=== PATIENT | female | born 1960 ===

== ENCOUNTER → 2022-05-15 13:50 | Outpatient (BNVA) | payer BC, SELFPAY | PROVIDERS: PCP Internal Medicine; Visit Provider Student in an Organized Health Care Education/Training Program | DX: M17.0 Bilateral primary osteoarthritis of knee (principal); M19.041 Primary osteoarthritis, right hand; M19.042 Primary osteoarthritis, left hand | CPT/HCPCS: 20610 ==

== ENCOUNTER 2022-05-22 16:12 | Outpatient (REF) | payer BC, SELFPAY | END 2022-05-22 16:13 | disposition home or self-care (01) | LOC: HO.HOSX 16:12 | PROVIDERS: Visit Provider Orthopaedic Surgery | DX: Z13.89 Encounter for screening for other disorder (principal) ==

== ENCOUNTER → 2022-07-12 09:00 | Outpatient (BNVA) | payer BC, SELFPAY | PROVIDERS: Visit Provider Student in an Organized Health Care Education/Training Program | DX: Z13.89 Encounter for screening for other disorder (principal) ==

== ENCOUNTER → 2022-10-01 11:48 | Outpatient (BNVA) | payer BC, SELFPAY | PROVIDERS: PCP Internal Medicine; Visit Provider Student in an Organized Health Care Education/Training Program | DX: Z13.89 Encounter for screening for other disorder (principal) ==

== ENCOUNTER 2022-11-06 14:43 | Outpatient (REF) | payer BC, SELFPAY ==
--- NOTE | ~2022-11-06 | MR_ITS ---
EXAMINATION: MR KNEE WITHOUT CONTRAST, RIGHT CLINICAL INFORMATION: Right knee pain. Evaluate for internal derangement. COMPARISON: None available. TECHNIQUE: MRI of the knee without contrast was performed using routine sequences on a high-field scanner. FINDINGS: MENISCI: Medial Meniscus: Complete radial tear through the anterior aspect of the meniscal body measuring up to 0.7 cm in AP dimension. Nondisplaced, oblique inner margin tearing of the posterior body and posterior horn. Mild adjacent soft tissue edema. Lateral Meniscus: Intact. LIGAMENTS: Cruciate: Intact. Collateral: Minimal edema adjacent to the medial collateral ligament which could represent a grade 1 sprain or be related to a meniscal tear. Intact fibular collateral ligament. EXTENSOR MECHANISM: Intact. ARTICULAR CARTILAGE/BONE: Patellofemoral Compartment: Articular cartilage fissuring with adjacent signal heterogeneity at the lateral aspect of the patellar median ridge. Central trochlear signal heterogeneity. Tiny marginal osteophytes. Medial Compartment: Weightbearing articular cartilage thinning and signal heterogeneity with small marginal osteophytes. Lateral Compartment: Posterior lateral tibial plateau articular cartilage signal heterogeneity. JOINT FLUID AND BURSAE: Small to moderate joint effusion. MR/MR knee RT wo con IMPRESSION: 1. Complete radial tear through the anterior aspect of the medial meniscal body measuring 0.7 cm in AP dimension. Nondisplaced, oblique inner margin tearing of the posterior body and posterior horn. 2. Mild adjacent soft tissue edema. 3. Minimal edema adjacent to the medial collateral ligament which could represent a grade 1 sprain or be related to a meniscal tear. Mild tricompartmental osteoarthritis. Small to moderate joint effusion.
== END 2022-11-06 14:44 | disposition home or self-care (01) ==
LOC: HO.MRI 14:43
PROVIDERS: PCP Internal Medicine; Visit Provider Student in an Organized Health Care Education/Training Program
DX: M25.461 Effusion, right knee (principal)
CPT/HCPCS: 73721

== ENCOUNTER 2023-01-01 09:21 | Outpatient (AMB) | payer BC, SELFPAY ==
--- NOTE | 2023-01-01 09:29 | MHC.OFFVIS ---
Intake Vital Signs 01/01/23 09:30 Height 5 ft 4 in Weight 188 lb BMI 32.3 Intake Visit Reasons: New Prob- right knee pain/ OA Intake Note: Christina a 62 year old female who presents today for an evaluation of right knee. Patient reports being seen by circuit manager and was given an injection on 05/15/22 to her right knee. States her pain begin approx in Jan and was having difficulty with stairs. States she feels unsteady and has some weakness. Pain has improved a little but cont's to have swelling. No injury she can recall. States injection lasted about 2 months. Patient denied numbness, tingling or bracing. Allergies No Known Allergies Allergy (Verified 01/01/23 09:38) HPI New Prob- right knee pain/ OA HPI Details 62-year-old female who presents to the office today for evaluation of right knee pain. She states she has pain in her right knee since January 2022, she denies injury. She was seen by her circuit manager where she was given a right knee injection on 05/15/22 which lasted for about 2 months. She reports she has weakness, pain and swelling in her knee which is aggravated with stair use. She also c/o feeling like her knee is unsteady. She denies any numbness, tingling. [facility] Medical History Adenomyosis Cervical (neck) region somatic dysfunction Hypertension Osteoarthritis Ulcerative colitis Surgical History Hx of tonsillectomy Family History Mother Diabetes Social History Household Members: Spouse Housing: House Alcohol intake: current Alcohol intake frequency: holidays/special occasions only Alcohol type: hard liquor Patient Tobacco Use Status: Never used Tobacco e-Cigarette/Vaping Use: Never Used service: No Current occupational status: employed Current occupation: field crop farmworker Review of Systems Const All systems reviewed & are unremarkable except as noted in HPI and below Physical Exam Vital Signs: BMI result Body Mass Index 32.3 Extrem Other: Right knee: Skin intact, no erythema or joint effusion. Medial joint line tenderness. Full ROM with crepitus. Negative Eric?s. No ligamentous laxity. NVI. Results Reviewed Results Reviewed: Xrays were obtained in the office today and personally reviewed by me of the right knee which show mild medial and PF compartment OA MR knee RT wo con 11/06/22 IMPRESSION: 1. Complete radial tear through the anterior aspect of the medial meniscal body measuring 0.7 cm in AP dimension. Nondisplaced, oblique inner margin tearing of the posterior body and posterior horn. 2. Mild adjacent soft tissue edema. 3. Minimal edema adjacent to the medial collateral ligament which could represent a grade 1 sprain or be related to a meniscal tear. Mild tricompartmental osteoarthritis. Small to moderate joint effusion. ? Assessment & Plan Assessment & Plan (1) Tear of medial meniscus of right knee: Code(s): S83.241A - Other tear of medial meniscus, current injury, right knee, initial encounter Plan We discussed options today which include repeat injection vs surgical intervention. Since she continues to have limitations with daily activities she would like to pursue surgical intervention. I discussed the extent of the injury to the patient and options available which include surgical intervention. I explained the procedure in detail along with the length of recovery and rehab course. I explained the risk, benefits and alternatives. Risk including, but not limited to infection, blood clots, bleeding, ongoing pain and stiffness. I answered all their questions and with their understanding they have consented to move forward with right knee arthroscopy with Dr. Alonso. The patient will be booked accordingly and meet with him pre-operatively. . Orders: Orders XR knee RT 2V Today M25.569 - Pain in unspecified knee XR knee standing BI Today M25.561 - Pain in right knee, M25.562 - Pain in left knee Patient Instructions: Scribed for Reta Kay PA-C, by Anil Duggan biomedical equipment specialist, on 01/01/2023 at 9:30 AM BARBARA. Reta Valencia PA-C, have personally reviewed and agree with the information entered by the scribe. Coding Level of Care Code New Pt Level 4 (33216) Diagnoses Tear of medial meniscus of right knee S83.241A
[2023-01-01 09:30] VITALS: BMI 32.3
== END 2023-01-01 10:08 | disposition home or self-care (01) ==
PROVIDERS: PCP Internal Medicine; Visit Provider Physician Assistant
DX: S83.241A Other tear of medial meniscus, current injury, right knee, initial encounter (principal)
CPT/HCPCS: 99214

== ENCOUNTER 2023-01-01 11:25 | Outpatient (REF) | payer BC, SELFPAY ==
--- NOTE | ~2023-01-01 | XR_ITS ---
EXAMINATION: XR KNEE AP STANDING CLINICAL INFORMATION: Pain in right knee. COMPARISON: MR right knee 11/06/2022. TECHNIQUE: AP bilateral standing view of the knees was obtained. Lateral and sunrise views of the right knee were also obtained. FINDINGS: Moderate degenerative changes in the medial compartment left knee with joint space narrowing and hypertrophic change. RIGHT KNEE: Trace joint effusion. Tiny tricompartmental osteophytes. Gzrn-zh-caezgnzj medial joint space narrowing. XR/XR knee standing BI IMPRESSION: 1. Vvaz-xj-hgqnecjy degenerative changes right knee. 2. Moderate degenerative changes left knee medial compartment on single AP view.
--- NOTE | ~2023-01-01 | XR_ITS ---
EXAMINATION: XR KNEE, RIGHT XR KNEE AP STANDING CLINICAL INFORMATION: Pain in right knee. COMPARISON: MR right knee 11/06/2022. TECHNIQUE: AP bilateral standing view of the knees was obtained. Lateral and sunrise views of the right knee were also obtained. FINDINGS: Moderate degenerative changes in the medial compartment left knee with joint space narrowing and hypertrophic change. RIGHT KNEE: Trace joint effusion. Tiny tricompartmental osteophytes. Agji-te-jqzpguuq medial joint space narrowing. XR/XR knee RT 2V IMPRESSION: 1. Wvsn-su-ydsxxznk degenerative changes right knee. 2. Moderate degenerative changes left knee medial compartment on single AP view.
== END 2023-01-01 11:26 | disposition home or self-care (01) ==
LOC: HO.HOSX 11:25
PROVIDERS: Visit Provider Physician Assistant
DX: S83.241A Other tear of medial meniscus, current injury, right knee, initial encounter (principal); M25.562 Pain in left knee
CPT/HCPCS: 73560; 73565

== ENCOUNTER 2023-02-04 08:08 | Outpatient (AMB) | payer BC, SELFPAY ==
--- NOTE | 2023-02-04 08:10 | MHC.OFFVIS ---
Intake Vital Signs 02/04/23 08:16 Height 5 ft 4 in Weight 188 lb BMI 32.3 Intake Visit Reasons: Pre-Op RT MMS 02/14/23DR Intake Note: Christina is a 62 year old female who presents with complaints of progressively worsening right knee pain and giving way. She states that she injured her right knee several years ago. She twisted her knee and had acute onset of pain. Since that time her symptoms have worsened spite of non operative treatments. She has done physical therapy exercises which aggravated her pain. She has also tried Tylenol and anti-inflammatory medicines which gave her minimal relief. She has had cortisone injections in the past which gave her only temporary relief. She states that her right knee will give out several times per day. Allergies No Known Allergies Allergy (Verified 02/04/23 08:15) Medication List - Last Reconciled 02/04/23 by Nomi Rivera MD oxycodone-acetaminophen 5-325 mg (Percocet) 1 tab PO Q6H PRN sulfasalazine 1 g PO BID PFSH Medical History Adenomyosis Cervical (neck) region somatic dysfunction Hypertension Osteoarthritis Ulcerative colitis Surgical History Hx of tonsillectomy Family History Mother Diabetes Social History Household Members: Spouse Housing: House Alcohol intake: current Alcohol intake frequency: holidays/special occasions only Alcohol type: hard liquor Patient Tobacco Use Status: Never used Tobacco e-Cigarette/Vaping Use: Never Used service: No Current occupational status: employed Current occupation: fabric and textile factory worker Physical Exam Vital Signs: BMI result Body Mass Index 32.3 Const Other: Well-nourished well-developed very friendly female awake alert and oriented x3 in no acute distress Extrem Other: Bilateral lower extremity examination shows good capillary refill, no skin lesions noted, normal sensation light touch Right knee examination shows a minimal effusion, minimal crepitus with range of motion, tenderness along her medial and lateral joint lines, positive Rae's test, no instability Results Reviewed Results Reviewed: X-rays of the patient's right knee show mild diffuse joint space narrowing, no acute bony abnormalities MRI of the patient's right knee shows mild diffuse degenerative changes, a tear of her medial meniscus as well as possible tearing of her lateral meniscus, no acute bony abnormalities Assessment & Plan Assessment & Plan (1) Tear of medial meniscus of right knee: Code(s): S83.241A - Other tear of medial meniscus, current injury, right knee, initial encounter Plan Ms. Mathew presents with progressively worsening right knee pain and mechanical symptoms due to tearing of her medial meniscus. I had a lengthy discussion with the patient regarding the treatment options. At this point she has failed continued non operative treatments. The risks and benefits of right knee arthroscopic surgery were discussed at length with the patient. Patient wishes to proceed with surgery. Surgery will most likely involve right knee diagnostic arthroscopy with partial medial and lateral meniscectomies. The patient was given a prescription for Percocet at her preoperative appointment. I will see her back 2-3 weeks following her surgery for 1st postoperative appointment. The patient will follow-up as instructed. Feel free to call me at any time should questions regarding her orthopedic management arise. Thank you very much for asking me to see this very friendly patient. I spent 22 minutes in reviewing the patient's records and imaging studies, seeing the patient and documenting in the medical record. Medications: New oxycodone-acetaminophen 5-325 mg (Percocet) Partial Fill upon patient request. 1 tab PO Q6H PRN 20 tabs 0RF pain Coding Level of Care Code Est Pt Level 2 (04937) Diagnoses Tear of medial meniscus of right knee S83.241A
[2023-02-04 08:16] VITALS: BMI 32.3
== END 2023-02-04 08:35 | disposition home or self-care (01) ==
PROVIDERS: PCP Internal Medicine; Visit Provider Orthopaedic Surgery
DX: S83.241A Other tear of medial meniscus, current injury, right knee, initial encounter (principal)
CPT/HCPCS: 99212

== ENCOUNTER → 2023-02-04 08:08 | Outpatient (BNVA) | payer BC, SELFPAY | PROVIDERS: PCP Internal Medicine; Visit Provider Orthopaedic Surgery ==

== ENCOUNTER 2023-02-19 09:15 | Outpatient (AMB) | payer BC, SELFPAY ==
[2023-02-19 09:22] VITALS: BP 160/74; PULSE 94; TEMP 36.4; O2SAT 96; BMI 30.8
--- NOTE | 2023-02-19 09:22 | MHC.OFFVIS ---
Intake Vital Signs 02/19/23 09:22 Height 5 ft 4 in Weight 179 lb 7.3 oz BMI 30.8 BP 160/74 H Blood Pressure Location Rt brachial Position Sitting Pulse 94 Pulse Source Pulse Oximeter Temp 97.6 F Temp Source Skin Pulse Oximetry (%) 96 Intake Visit Reasons: Knee OA Intake Note: Pt seen today for OA follow up. Reports knee surgery scheduled 02/28/23 Commercial Credit Portfolio Manager Required: No Accompanied by: Self / Same As Patient Allergies No Known Allergies Allergy (Verified 02/19/23 09:23) Medication List - Last Reconciled 02/19/23 by Noris Sullivan MD oxycodone-acetaminophen 5-325 mg (Percocet) 1 tab PO Q6H PRN sulfasalazine 1 g PO BID HPI HPI Comments History of Present Illness Details 62-year-old female with ulcerative colitis on sulfasalazine, bilateral hand osteoarthritis and bilateral knee osteoarthritis returns for follow-up. She was evaluated by Orthopedics for right knee meniscal tear and she is scheduled for arthroscopic procedure this week. Continues to have pain and stiffness in her hands. Some weakness with gripping objects with the right hand. Difficulty making a fist due to right thumb pain and weakness. She does not have any new or worsening pain. Initial history: This is 61-year-old female with a past medical history of ulcerative colitis on sulfasalazine, adenomyosis, hypertension of presents for evaluation of bilateral hand deformities. Patient started having bilateral hand pain and deformities about 5 years ago. She was started on meloxicam by her sign language translator which did not provide any relief. 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 She has reduced chip silo tender strength bilaterally due to pain and stiffness. She also has cracking neck sounds when moving her neck left and right. She has neck pain radiating to her shoulders with movement. She also has bilateral knee pain, it started in the left knee a few years ago when her she had the work injury, left knee MRI showed meniscal tear, she received a couple of intra-articular steroid injections, the 1st of which provided many months of the relief however the 2nd injection did not provide any relief. Currently, her right knee is the 1 that hurts, worse with walking. She used Voltaren gel for her right knee but at that time she had pelvic pain similar to the pain she had when she was diagnosed with I did a myosis so she stopped using it. She states that her ulcerative colitis has been relatively well controlled, she has not had a flare in years. She is due for another colonoscopy early next year [facility] Medical History Adenomyosis Cervical (neck) region somatic dysfunction Hypertension Osteoarthritis Ulcerative colitis Surgical History Hx of tonsillectomy Family History Mother Diabetes Social History Household Members: Spouse Housing: House Alcohol intake: current Alcohol intake frequency: holidays/special occasions only Alcohol type: hard liquor Patient Tobacco Use Status: Never used Tobacco e-Cigarette/Vaping Use: Never Used service: No Current occupational status: employed Current occupation: production line worker Review of Systems Const All systems reviewed & are unremarkable except as noted in HPI and below Musc Reports arthralgias and Reports stiffness Physical Exam Vital Signs: Last Vital Signs Temp 97.6 F 02/19/23 09:22 Pulse 94 02/19/23 09:22 BP 160/74 H 02/19/23 09:22 Pulse Ox 96 02/19/23 09:22 BMI result Body Mass Index 30.8 Const General: cooperative, healthy appearing, comfortable and no acute distress Nutritional Appearance: average body habitus Orientation/consciousness: patient oriented x3 Limitations: no limitations HEENT Head: Yes normocephalic and Yes atraumatic Mouth: moist mucous membranes Resp Effort & Inspection: normal respiratory effort and able to speak in complete sentences Neuro General: patient oriented x3 Extrem Other: Significant osteoarthritic changes of her hands with prominent Ray's and Heberden's nodes No tenderness at the 1st CMC joint bilaterally Grind test does not produce pain bilaterally No right knee swelling or warmth today. Assessment & Plan Assessment & Plan (1) Osteoarthritis of hands, bilateral: Code(s): M19.041 - Primary osteoarthritis, right hand; M19.042 - Primary osteoarthritis, left hand Qualifiers: Osteoarthritis type: primary Qualified Code(s): M19.041 - Primary osteoarthritis, right hand; M19.042 - Primary osteoarthritis, left hand Plan: This is a 62-year-old female with a past medical history of ulcerative colitis on sulfasalazine and bilateral hand erosive osteoarthritis follow-up. Feeling about the same overall For her bilateral hand osteoarthritis. Patient did occupational therapy which was somewhat helpful. She was evaluated by a hand surgeon and discussed different surgeon that he has and patient was not interested. Prednisone taper was not helpful. Voltaren gel was associated with GI bleeding. Patient states that her pain is about the same and tolerable currently. Follow-up in 1 year (2) Tear of medial meniscus of right knee: Code(s): S83.241A - Other tear of medial meniscus, current injury, right knee, initial encounter Qualifiers: Tear current or old: current Encounter type: subsequent encounter Meniscus tear of knee type: unspecified type Qualified Code(s): S83.241D - Other tear of medial meniscus, current injury, right knee, subsequent encounter Plan: Evaluated by Orthopedics and scheduled for arthroscopic procedure Plan I spent 14 minutes reviewing patient's chart, evaluating patient, counseling patient and documenting in the chart Coding Level of Care Code Est Pt Level 3 (78250) Diagnoses Osteoarthritis of hands, bilateral M19.041; M19.042 Osteoarthritis type: primary Tear of medial meniscus of right knee S83.241D Tear current or old: current Encounter type: subsequent encounter Meniscus tear of knee type: unspecified type
== END 2023-02-19 09:38 | disposition home or self-care (01) ==
PROVIDERS: PCP Internal Medicine; Visit Provider Student in an Organized Health Care Education/Training Program
DX: M19.041 Primary osteoarthritis, right hand (principal); M19.042 Primary osteoarthritis, left hand; S83.241D Other tear of medial meniscus, current injury, right knee, subsequent encounter
CPT/HCPCS: 99213

== ENCOUNTER → 2023-02-19 09:15 | Outpatient (BNVA) | payer BC, SELFPAY | PROVIDERS: PCP Internal Medicine; Visit Provider Student in an Organized Health Care Education/Training Program ==

== ENCOUNTER → 2023-11-11 15:46 | Outpatient (RCR) | payer BC, SELFPAY | END | disposition home or self-care (01) | LOC: HO.OT 05-29 10:31 | PROVIDERS: PCP Internal Medicine; Visit Provider Podiatrist | DX: M19.041 Primary osteoarthritis, right hand (principal); M19.042 Primary osteoarthritis, left hand | CPT/HCPCS: 29130; 97035; 97110; 97140; 97166; 97535; 97760 ==

== ENCOUNTER 2024-04-07 07:36 | Outpatient (AMB) | payer BC, SELFPAY ==
--- NOTE | 2024-04-07 07:43 | A.OFFVIS_ITS ---
Vital Signs 04/07/24 07:49 Height 5 ft 4 in Weight 190 lb 0.615 oz BMI 32.6 BP 122/80 Blood Pressure Location Rt brachial Position Sitting Pulse 79 Pulse Source Pulse Oximeter Pulse Oximetry (%) 97 Oxygen Delivery Method Room Air Intake Visit Reasons: Knee OA Intake Note: Patient presents for knee OA. Allergies No Known Allergies Allergy (Verified 04/07/24 07:45) Medication List - Last Reconciled 04/07/24 by Noris Sullivan MD losartan 50 mg PO DAILY sulfasalazine 1 g PO BID HPI Comments Details: 63-year-old female with ulcerative colitis on sulfasalazine bilateral hand erosive osteoarthritis who presents for follow-up. After last visit I had referred patient to orthopedics for meniscal tear. Surgery was discussed and planned however soon after patient was evaluated by her OBGYN and was found to have endometrial cancer. She states that it was stage I and she had surgery. States that it was caught early and she did not require chemotherapy or radiation. She states that she continues to be symptomatic from her bilateral hand osteoarthritis. She works in the kitchen. She does not use anything for pain except take ibuprofen sparingly when she has severe symptoms. She states that she will retire in July and thinks that her symptoms would improve once she retires. Initial history: This is 61-year-old female with a past medical history of ulcerative colitis on sulfasalazine, adenomyosis, hypertension of presents for evaluation of bilateral hand deformities. Patient started having bilateral hand pain and deformities about 5 years ago. She was started on meloxicam by her certified endoscopy technician which did not provide any relief. 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 She has reduced agent licensing clerk strength bilaterally due to pain and stiffness. She also has cracking neck sounds when moving her neck left and right. She has neck pain radiating to her shoulders with movement. She also has bilateral knee pain, it started in the left knee a few years ago when her she had the work injury, left knee MRI showed meniscal tear, she received a couple of intra-articular steroid injections, the 1st of which provided many months of the relief however the 2nd injection did not provide any relief. Currently, her right knee is the 1 that hurts, worse with walking. She used Voltaren gel for her right knee but at that time she had pelvic pain similar to the pain she had when she was diagnosed with I did a myosis so she stopped using it. She states that her ulcerative colitis has been relatively well controlled, she has not had a flare in years. She is due for another colonoscopy early next year [facility] Medical History Endometrial cancer Adenomyosis Hypertension Osteoarthritis Cervical (neck) region somatic dysfunction Ulcerative colitis Surgical History History of hysterectomy for cancer Hx of tonsillectomy Family History Mother Diabetes Father Alzheimer dementia Social History Household Members: Spouse Housing: House Alcohol intake: current Alcohol intake frequency: holidays/special occasions only Alcohol type: hard liquor Patient Tobacco Use Status: Never used Tobacco e-Cigarette/Vaping Use: Never Used service: No Current occupational status: employed Current occupation: ticket worker Review of Systems Const All systems reviewed & are unremarkable except as noted in HPI and below [facility] Reports arthralgias and Reports stiffness Physical Exam Vital Signs: Last Vital Signs Pulse 79 04/07/24 07:49 BP 122/80 04/07/24 07:49 Pulse Ox 97 04/07/24 07:49 Oxygen Delivery Method Room Air 04/07/24 07:49 BMI result Body Mass Index 32.6 Const General: cooperative, healthy appearing, comfortable and no acute distress Nutritional Appearance: average body habitus Orientation/consciousness: patient oriented x3 Limitations: no limitations HEENT Head: Yes normocephalic and Yes atraumatic Mouth: moist mucous membranes Resp Effort & Inspection: normal respiratory effort and able to speak in complete sentences Neuro General: patient oriented x3 Extrem Other: Significant osteoarthritic changes of her hands with prominent Ray's and Heberden's nodes No tenderness at the 1st CMC joint bilaterally Grind test does not produce pain bilaterally Assessment & Plan Assessment & Plan (1) Osteoarthritis of hands, bilateral: Code(s): M19.041 - Primary osteoarthritis, right hand; M19.042 - Primary osteoarthritis, left hand Category: Medical Qualifiers: Osteoarthritis type: primary Qualified Code(s): M19.041 - Primary osteoarthritis, right hand; M19.042 - Primary osteoarthritis, left hand Plan: This is a 63-year-old female with a past medical history of ulcerative colitis on sulfasalazine and bilateral hand erosive osteoarthritis follow-up. I do not see any signs suggestive of inflammatory arthritis at this time. Patient remains symptomatic but symptoms are not getting progressively worse. 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 Patient was evaluated by hand surgeon in the past and different procedures such as injections and surgery were discussed. Patient did go to occupational therapy in the past and custom finger splints were made for her. Patient stated that she had left thumb in her car and they melted. She is not interested in going back to OT At this time patient can follow-up as needed Plan I spent 14 minutes reviewing patient's chart, evaluating patient, counseling patient and documenting in the chart Coding Level of Care Code Est Pt Level 3 (12327) Diagnoses Primary osteoarthritis of both hands M19.041; M19.042 Osteoarthritis type: primary
[2024-04-07 07:49] VITALS: BP 122/80; PULSE 79; O2SAT 97; BMI 32.6
== END 2024-04-07 08:09 | disposition home or self-care (01) ==
PROVIDERS: PCP Internal Medicine; Visit Provider Student in an Organized Health Care Education/Training Program
DX: M19.041 Primary osteoarthritis, right hand (principal); M19.042 Primary osteoarthritis, left hand
CPT/HCPCS: 99213

== ENCOUNTER → 2024-04-07 07:36 | Outpatient (BNVA) | payer BC, SELFPAY | PROVIDERS: PCP Internal Medicine; Visit Provider Student in an Organized Health Care Education/Training Program ==